=== PATIENT | female | born 1965 | race Caucasian/White ===

== ENCOUNTER 2022-04-13 15:04 | Outpatient (CLI) | payer BC | END 2022-04-13 15:05 | disposition home or self-care (01) | LOC: BICMAMMO 15:04 | PROVIDERS: ATTEND Nurse Practitioner | DX: Z12.31 Encounter for screening mammogram for malignant neoplasm of breast (principal) | CPT/HCPCS: 77063; 77067 ==

== ENCOUNTER 2024-01-03 14:09 | Outpatient (CLI) | payer BC | END 2024-01-03 14:10 | disposition home or self-care (01) | LOC: BICMAMMO 14:09 | PROVIDERS: ATTEND Family Medicine | DX: N63.20 Unspecified lump in the left breast, unspecified quadrant (principal) | CPT/HCPCS: 77066; G0279 ==